=== PATIENT | male | born 1965 | race Caucasian/White ===

== ENCOUNTER 2020-03-15 06:44 | Outpatient (NON) | payer BC, SELFPAY ==
[2020-03-16 02:42] LABS: SARS-CoV-2 RNA PCR Positive
== END 2020-03-15 06:45 ==
PROVIDERS: PCP Family Medicine Adolescent Medicine; Visit Provider Family Medicine Adolescent Medicine
DX: U07.1 COVID-19 (principal)
CPT/HCPCS: 87635; C9803; U0003

== ENCOUNTER → 2020-08-13 14:47 | Outpatient (CLI) | payer BC, SELFPAY ==
--- NOTE | ~2020-08-13 | XR_ITS ---
XR chest 2V DATE: 08/13/2020 15:31 INDICATION: Dyspnea TECHNIQUE: 2 views COMPARISON: None FINDINGS: Normal heart size. No hilar or mediastinal enlargement. No pulmonary infiltrate or consolidation, pleural effusion or pulmonary vascular congestion or pneumo thorax. Status post C6-C7 anterior cervical spine surgical fusion. IMPRESSION: No active cardiopulmonary disease Reviewed, dictated and finalized at location A.
== END ==
PROVIDERS: PCP Emergency Medicine; Visit Provider Emergency Medicine
DX: R06.00 Dyspnea, unspecified (principal); Z98.1 Arthrodesis status
CPT/HCPCS: 71046

== ENCOUNTER → 2021-08-07 02:37 | Outpatient (CLI) | payer BC, SELFPAY ==
[2021-08-07 12:32] LABS: SARS-CoV-2 RNA PCR Negative
== END ==
PROVIDERS: Visit Provider Internal Medicine Gastroenterology
DX: Z01.812 Encounter for preprocedural laboratory examination (principal); Z20.822 Contact with and (suspected) exposure to COVID-19
CPT/HCPCS: C9803; U0003; U0005

== ENCOUNTER 2021-08-10 00:33 | Day surgery (SDC) | payer BC, SELFPAY ==
[2021-07-30 12:36] VITALS: BMI 29.6
[2021-08-10 08:43] VITALS: BP 132/79; PULSE 61; RESP 20; TEMP 36.7; O2SAT 98; BMI 29.4
[2021-08-10] MEDS: LACTATED RINGERS 1,000 ML 150 ML IV CONT (08:48)
--- NOTE | 2021-08-10 08:54 | WPDGICN ---
Assessment and Plan Assessment and plan (1) GERD (gastroesophageal reflux disease): Code(s): K21.9 - Gastro-esophageal reflux disease without esophagitis Status: Acute Assessment and Plan: Patient has symptoms compatible with GE reflux disease. This poorly responsive to current medications which include omeprazole 40mg p.o. daily. Some symptoms such as bowel urgency after eating all are suspicious for irritable bowel syndrome. Plan is for EGD to assess more thoroughly. Further recommendations will be given after endoscopy. GI Consult Note Consult date/time: 08/10/21 08:54 HPI: Lobo Guevara is a 56 year old male Presents for EGD. He states for many years has had substernal burning. He notices acid regurgitation. Occasional bloating and belching. He noticed this discomfort predominantly in the morning and also after eating. He has tried antacids with no improvement. Recently on omeprazole 40mg p.o. daily for the last year with no change in symptoms. He denies any dysphagia. He has had no weight loss. He notices urgency with bowel movements after eating. He denies any blood in his stools. His weight has remained stable. He presents today for EGD to assess more thoroughly. Review of Systems Review of Systems: All systems reviewed & are unremarkable except as noted in HPI and below PMFSH Past Medical History Medical History Chicken pox Diarrhea Surgical History Surgical History H/O partial thyroidectomy (~2018) S/P cervical disc replacement (~2004) Family History Family History Father Cancer Mother No problems noted. Social History Social History Social History: Patient drinks 5 cups of caffeine per week Smoking status: Never smoker Second hand tobacco smoke exposure: No Alcohol intake: never Alcohol use details: Patient drinks once monthly Substance use: never Substance use type: does not use Living arrangements: with family Additional living arrangements comments: Additional occupation/education comments: [employer] Gender identity (if verbalized by the patient): Male Sexual Orientation (if Verbalized by the Patient): Straight or Heterosexual Spiritual care concerns: No Meds Home Medications and Allergies Home Medications Medication Instructions Recorded Confirmed Type vortioxetine 20 mg tablet 20 mg PO DAILY #90 tablet 09/22/20 07/30/21 Rx diazepam 5 mg tablet 5 mg PO QHS PRN 06/29/21 07/30/21 History gabapentin 300 mg capsule 300 mg PO BID 06/29/21 07/30/21 History omeprazole 40 mg capsule,delayed 40 mg PO DAILY 06/29/21 07/30/21 History release vortioxetine [Trintellix] 20 mg PO DAILY 08/10/21 08/10/21 History Allergies Allergy/AdvReac Type Severity Reaction Status Date / Time No Known Allergies Allergy Verified 08/10/21 08:41 Vital Signs Vital Signs - 24 hr 08/10/21 08:43 Temperature 98.1 F Pulse Rate 61 Respiratory Rate 20 Blood Pressure 132/79 Pulse Oximetry 98 Exam Narrative: physical exam reveals patient to be alert. Vital signs stable. HEENT exam is unremarkable. Patient is anicteric. Lungs are clear to auscultation and percussion. Heart is without murmur or extra sounds. Abdominal exam bowel sounds are present soft nontender with no organomegaly.
--- NOTE | 2021-08-10 08:57 | WPDANESEPPF ---
Anes - Initial Pre Proc Eval Procedure: Operation Date: 08/10/21 09:45 Proposed Procedures p Esophagogastroduodenoscopy - Steve Corado MD Date/Time: 08/10/21 08:57 Surgeon: Steve Corado MD Pre Op Diagnosis: GERD Patient Data Age: 56 Gender: M Height: 1.8 m Weight: 95.6 kg Last Vital Signs Temp 98.1 F 08/10/21 08:43 Pulse 61 08/10/21 08:43 Resp 20 08/10/21 08:43 BP 132/79 08/10/21 08:43 Pulse Ox 98 08/10/21 08:43 Allergies Allergy/AdvReac Type Severity Reaction Status Date / Time No Known Allergies Allergy Verified 08/10/21 08:41 Home Medications Medication Instructions Recorded Confirmed Type vortioxetine 20 mg tablet 20 mg PO DAILY #90 tablet 09/22/20 07/30/21 Rx diazepam 5 mg tablet 5 mg PO QHS PRN 06/29/21 07/30/21 History gabapentin 300 mg capsule 300 mg PO BID 06/29/21 07/30/21 History omeprazole 40 mg capsule,delayed 40 mg PO DAILY 06/29/21 07/30/21 History release vortioxetine [Trintellix] 20 mg PO DAILY 08/10/21 08/10/21 History Patient hx anesthesia problems: none Family hx anesthesia problems: none Results Review: All pre-operative results and documents have been reviewed as part of the pre-operative evaluation. [facility] Past Medical History Medical History Chicken pox Diarrhea Surgical History Surgical History H/O partial thyroidectomy (~2018) S/P cervical disc replacement (~2004) Family History Family History Father Cancer Mother No problems noted. Social History Social History Social History: Patient drinks 5 cups of caffeine per week Smoking status: Never smoker Second hand tobacco smoke exposure: No Alcohol intake: never Alcohol use details: Patient drinks once monthly Substance use: never Substance use type: does not use Living arrangements: with family Additional living arrangements comments: Additional occupation/education comments: [employer] Gender identity (if verbalized by the patient): Male Sexual Orientation (if Verbalized by the Patient): Straight or Heterosexual Spiritual care concerns: No Anes - Eval Final PreProcedure Day of Procedure 08/10/21 08:57 Patient weight: obese Heart: regular rate and rhythm Lungs: clear to auscultation Airway: Mallampati scale class II Neurological: alert and oriented Last oral intake: >/= 8 hours ASA classification: III Emergent: no Anesthetic plan: proceed Anesthesia type and monitoring: general GIVS and standard monitoring Results Review: All pre-operative results and documents have been reviewed as part of the pre-operative evaluation. Informed Consent: The patient's anesthetic plan and its attendant risks and benefits were discussed with the patient/family/POA. Questions were solicited and answers provided to the satisfaction of the patient/family/POA.
[2021-08-10] MEDS: BENZOCAINE (*SP) 60 ML SPRAY CAN (HURRICAINE) 1 SPRAY MUCOUS MEM (09:36)
[2021-08-10 09:45] VITALS: BP 115/80; PULSE 60; RESP 17; O2SAT 98
[2021-08-10 09:55] VITALS: BP 119/79; PULSE 61; RESP 14; O2SAT 98
[2021-08-10 10:05] VITALS: BP 138/84; PULSE 60; RESP 19; O2SAT 99
== END 2021-08-10 10:18 | disposition home or self-care (01) ==
PROVIDERS: Visit Provider Internal Medicine Gastroenterology
PROC: 0DJ08ZZ Inspection of Upper Intestinal Tract, Via Natural or Artificial Opening Endoscopic (ICD-10-PCS; CPT 43235; principal; 2021-08-10 09:45)
DX: K21.9 Gastro-esophageal reflux disease without esophagitis (principal); E66.9 Obesity, unspecified; Z68.29 Body mass index [BMI] 29.0-29.9, adult
CPT/HCPCS: 43239; 87081; J2704; J7120

== ENCOUNTER 2023-09-23 10:14 | Outpatient (CLI) | payer BC, SELFPAY ==
--- NOTE | 2023-09-23 10:49 | ECG_ITS ---
SEE SCANNED COPY FOR CONFIRMED REPORT MTDD
== END 2023-09-23 10:15 | disposition home or self-care (01) ==
LOC: ANHLAB 10:25 → ANHCARD 10:28
DX: Z01.812 Encounter for preprocedural laboratory examination (principal)
CPT/HCPCS: 93005